=== PATIENT | male | born 1960 | race Caucasian/White ===

== ENCOUNTER 2019-01-12 20:23 | Emergency (ER) | payer MEDICAID ==
[~2019-01-12] VITALS: Ht 175.3 cm; Wt 90.7 kg
[2019-01-12 20:51] VITALS: BP 159/94
[2019-01-12 21:35] LABS: Basophils # (auto) 0 uL; Basophils % (auto) 0.2 % (0.0-2.0); Eosinophils # (auto) 0 uL; Hematocrit 52.1 % (41.0-53.0); Hemoglobin 17.6 g/dL (13.5-17.5); Lymphocytes # (auto) 1.5 uL; Lymphocytes % (auto) 11.6 % (10.0-50.0); Mean Corpuscular Hemoglobin 30.5 pg (28.0-32.0); Mean Corpuscular Hgb Conc. 33.8 g/dL (32.0-36.0); Mean Corpuscular Volume 90.3 fL (80.0-100.0); Monocytes # (auto) 0.6 uL; Monocytes % (auto) 4.3 % (0.0-12.0); Neutrophils # (auto) 10.8 uL; Neutrophils % (auto) 83.9 % (37.0-80.0); Nucleated Red Blood Cells % 0.3 %; Platelet Count (auto) 324 10^3/uL (140-450); Red Blood Cells 5.77 10^6/uL (4.5-5.90); Red Cell Distribution Width 14.3 % (11.8-14.3); White Blood Cell 12.9 10^3/uL (4.4-10.8)
[2019-01-12 21:51] LABS: Albumin 4.1 g/dL (3.4-5.0); Anion Gap 9 (5-15); Blood Urea Nitrogen 15 mg/dL (7-18); Calcium 9.2 mg/dL (8.5-10.1); Carbon Dioxide 25 mmol/L (21-32); Chloride 102 mmol/L (98-107); Glucose 140 mg/dL (74-106); Potassium 4.1 mmol/L (3.5-5.1); Sodium 136 mmol/L (136-145)
[2019-01-12 21:54] LABS: Alanine Aminotransferase 31 U/L (16-61); Aspartate Aminotransferase 14 U/L (15-37); BUN/Creatinine Ratio 11.5; GFR African American 73 mL/min; GFR Non-African American 60 mL/min
[2019-01-12 22:02] LABS: Alkaline Phosphatase 123 U/L (45-117); Bilirubin, Total 0.6 mg/dL (0.2-1.0); Total Protein 9.2 g/dL (6.4-8.2)
== END 2019-01-13 01:42 | disposition left against medical advice (07) ==
LOC: ER 20:25
DX: R10.10 Upper abdominal pain, unspecified (principal); Z53.21 Procedure and treatment not carried out due to patient leaving prior to being seen by health care provider
CPT/HCPCS: 36415; 80053; 84484; 85025; 93005

== ENCOUNTER 2020-01-01 23:22 | Inpatient (IN) | payer MEDICAID, OTHER ==
[~2020-01-01] VITALS: Ht 175.3 cm; Wt 90.9 kg
[2020-01-01] MEDS ORDERED: cloNIDine HCL 0.1 MG TAB PO ONE (23:45)
[2020-01-01 23:59] LABS: Basophils # (auto) 0 10 ^3/uL (0-0.2); Basophils % (auto) 0.1 % (0.0-2.0); Eosinophils # (auto) 0 10 ^3/uL (0-0.8); Hematocrit 50.6 % (41.0-53.0); Hemoglobin 17.1 g/dL (13.5-17.5); Lymphocytes # (auto) 1.5 10 ^3/uL (0.4-5.4); Lymphocytes % (auto) 12.9 % (10.0-50.0); Mean Corpuscular Hemoglobin 30.5 pg (28.0-32.0); Mean Corpuscular Hgb Conc. 33.8 g/dL (32.0-36.0); Mean Corpuscular Volume 90.1 fL (80.0-100.0); Monocytes # (auto) 0.7 10 ^3/uL (0-1.3); Monocytes % (auto) 6.1 % (0.0-12.0); Neutrophils # (auto) 9.5 10 ^3/uL (1.6-8.6); Neutrophils % (auto) 80.9 % (37.0-80.0); Nucleated Red Blood Cells % 0.6 %; Platelet Count (auto) 347 10^3/uL (140-450); Red Blood Cells 5.62 10^6/uL (4.5-5.90); Red Cell Distribution Width 14.2 % (11.8-14.3); White Blood Cell 11.7 10^3/uL (4.4-10.8)
[2020-01-02 00:11] LABS: INR 1.07 (0.9-1.15); Partial Thromboplastin Time 27.5 sec (23.64-32.05)
[2020-01-02 00:14] LABS: Alanine Aminotransferase 40 U/L (16-61); Anion Gap 8 (5-15); Aspartate Aminotransferase 19 U/L (15-37); BUN/Creatinine Ratio 13.3; Blood Urea Nitrogen 17 mg/dL (7-18); Calcium 9.4 mg/dL (8.5-10.1); Carbon Dioxide 26 mmol/L (21-32); Chloride 102 mmol/L (98-107); GFR African American 74 mL/min; GFR Non-African American 61 mL/min; Glucose 152 mg/dL (74-106); Potassium 4.5 mmol/L (3.5-5.1); Sodium 136 mmol/L (136-145)
[2020-01-02 00:25] LABS: Alkaline Phosphatase 121 U/L (45-117); Bilirubin, Total 0.5 mg/dL (0.2-1.0); Total Protein 9.1 g/dL (6.4-8.2)
[2020-01-02] MEDS ORDERED: ONDANSETRON HCL 4 MG/2 ML VIAL IV ONE (00:30)
[2020-01-02] MEDS ORDERED: SODIUM CHLORIDE 0.9% 1,000 ML IV ONE (00:30)
[2020-01-02] MEDS ORDERED: chlorproMAZINE HCL 25 MG TAB PO ONE (01:30)
[2020-01-02 02:24] LABS: Urine Bacteria FEW /hpf (None Seen); Urine Blood 1+ /uL (Negative); Urine Hyaline Cast FEW /lpf (0 - 2); Urine Mucus FEW (None Seen); Urine Specific Gravity 1.026 (1.001-1.035); Urine WBC 6 /hpf (0 - 3)
[2020-01-02 02:53] LABS: Cholesterol 208 mg/dL (< 200)
[2020-01-02 02:55] LABS: HDL Cholesterol 49 mg/dL (40-59); LDL Cholesterol 129 mg/dL (< 100); Lactic Acid w/Reflex 2.4 mmol/L (0.4-2.0); Triglycerides 157 mg/dL (< 150)
[2020-01-02] MEDS ORDERED: AZITHROMYCIN 500MG/ 250ML 250 ML IV ONE (03:00)
[2020-01-02] MEDS ORDERED: SULFAMETH-TRIMETH 80/16MG-ML 10 ML in D5W 5% 250 ML IV ONE (03:30)
[2020-01-02] MEDS ORDERED: cefTRIAXone 1GM/50ML D5W 50 ML IV ONE (03:30)
[2020-01-02] MEDS ORDERED: SODIUM CHLORIDE 0.9% 1,000 ML IV SCH ×2 (03:39→17:15)
[2020-01-02] MEDS ORDERED: ACETAMINOPHEN 500 MG TAB PO PRN (03:45)
[2020-01-02] MEDS ORDERED: DEXTROSE (50%) 50ML SYRG IV PRN (03:45)
[2020-01-02] MEDS ORDERED: MORPHINE SULFATE 4 MG/ML SYR/VIAL IV PRN (03:45)
[2020-01-02] MEDS ORDERED: HYDROcodone-ACET 5/325MG TAB PO PRN (03:45)
[2020-01-02] MEDS ORDERED: ONDANSETRON HCL 4 MG/2 ML VIAL IV PRN (03:45)
[2020-01-02] MEDS ORDERED: DOCUSATE SOD 100 MG CAP PO PRN (03:45)
[2020-01-02] MEDS: InsuLIN REG 1unit/0.01ml Soln (100units/ml) SC SCH ×5 (04:00→20:59)
[2020-01-02] MEDS: ACCU-CHEK COMFORT CURVE STRIP VI SCH ×5 (04:00→20:00)
[2020-01-02] MEDS ORDERED: ALBUTEROL SULF HFA 90MCG INH 200DOSE IN SCH ×2 (06:00)
--- NOTE | 2020-01-02 06:00 | NUR ---
Telemetry admit from ER RAIMUNDONIDIA admitted to Telemetry unit after SBAR received. Patient oriented to ARON PRIEST, RN primary RN, unit, room, bed, and unit policies regarding patient care and visiting hours. ]. weighed by bedscale and encouraged to call if they need something. All questions and concerns addressed, patient verbalized understanding. Note:
[2020-01-02 06:01] VITALS: BP 116/75
[2020-01-02] MEDS ORDERED: DARU1TAB3 PO (07:16)
[2020-01-02] MEDS ORDERED: ASPI-231 PO (07:16)
--- NOTE | 2020-01-02 07:41 | NUR ---
PAGED GROUND HELPER STREET RAILWAY HOSPITALIST.
--- NOTE | 2020-01-02 08:22 | NUR ---
ROUNDING: PATIENT RESTING IN BED. LETHARGIC. PATIENT DENIES TAKING ANY ILLEGAL SUBSTANCE. PATIENTS LEFT SIDE OF FACE DROOPY AND STATES HIS FACE FEELS NUMB. LEFT ARM DRIFTING WHEN BOTH ARMS ARE EXTENDED. CYCLE DIRECTOR STRENGTH EQUAL BILATERALLY ALONG WITH DELAYED SPEECH.
--- NOTE | 2020-01-02 08:27 | NUR ---
PAGED ANIMAL ATTENDANT HOSPITALIST.
--- NOTE | 2020-01-02 08:42 | NUR ---
SPOKE TO Darryl FELIX AND INFORMED OF PATIENT STATUS INCLUDING LEFT SIDED FACIAL DROOPING AND LEFT ARM DRIFTING. INFORMED MACHINE PAN GREASER STRENGTHS ARE EQUAL. STATED HE IS NOT THE ASSIGNED M.D. AND WHOEVER IS ASSIGNED TO THIS PATIENT WILL EVALUATE.
--- NOTE | 2020-01-02 09:25 | NUR ---
REGARDING CT: TRANSPORTED PATIENT TO RADIOLOGY FOR STAT HEAD CT WITH WILMER STAPLES, EVS, AND SECURITY. PATIENTS VITALS 123/67, HR 67, ON 2L NC WITH OXYGEN SATURATIONS AT 94%. RR 18.
--- NOTE | 2020-01-02 09:51 | NUR ---
REGARDING CT OF HEAD: SPOKE TO Darryl TEJADA. INFORMED THIS RN THAT PATIENT HAS A ACUTE INFARCT IN L CEREBELLUM.
[2020-01-02] MEDS ORDERED: ZINC SULFATE 220mg CAP or TAB PO SCH (10:00)
[2020-01-02] MEDS ORDERED: ASCORBIC ACID 1,000 MG TAB PO SCH (10:00)
[2020-01-02] MEDS ORDERED: CHOLECALCIFEROL (VITD3) 1,000UNIT=25mCg TAB PO SCH (10:00)
[2020-01-02] MEDS ORDERED: ENOXAPARIN SOD 40 MG/0.4 ML SYRINGE SC SCH (10:00)
[2020-01-02] MEDS ORDERED: DOXYCYCLINE 100 MG TAB/CAP PO SCH (10:00)
[2020-01-02] MEDS ORDERED: DOXYCYCLINE 100MG/250ML 250 ML IV SCH (10:00)
--- NOTE | 2020-01-02 10:00 | NUR ---
ROUNDING: PATIENT A&OX4. BLOOD PRESSURE 134/63 AND HEART RATE 74 BPM. PATIENT ON 2L NC. CONTINUES TO PRESENT WITH LEFT SIDED DROOPING OF THE FACE AND LEFT ARM DRIFTING.
--- NOTE | 2020-01-02 10:12 | NUR ---
ANAYA PASCUAL RE: HEAD CT RESULTS. AWAITING CALL BACK
--- NOTE | 2020-01-02 10:18 | NUR ---
IV insertion IV access obtained, via clean sterile technique by inserting 22 gauge catheter at RAC after 1 attempt(s). IV secured properly. No trauma to site. Patient tolerated well. NOTE:
--- NOTE | 2020-01-02 10:31 | NUR ---
SPOKE TO Darryl PASCUAL REGARDING FINDINGS OF HEAD CT AND PATIENT CURRENT SYMPTOMS. RECEIVED ORDERS FOR STAT NEUROLOGY CONSULT. STATED SHE WILL TALK TO Darryl GOMEZ AND CALL THIS RN BACK.
--- NOTE | 2020-01-02 10:33 | NUR ---
CONSULT NOTIFICATION: CALLED IN STAT NEUROLOGY CONSULT TO [facility]HE[facility] IN PBX FOR Darryl GOMEZ.
--- NOTE | 2020-01-02 10:48 | NUR ---
Darryl PASCUAL AT BEDSIDE. INFORMED OF PATIENT STATUS. RECEIVED ORDER TO HOLD ALL MEDICATION AND PLACE PATIENT ON NPO STATUS.
[2020-01-02 12:45] VITALS: BP 148/79
--- NOTE | 2020-01-02 13:55 | NUR ---
Transferred to [facility] RAIMUNDONIDIA transferred to [facility] via hospital bed on traffic monitor specialist (returned to unit), and portable 02. Patient connected to unit monitoring and oxygen on Oxymizer 6 LPM, and weighed by bedscale. Patient oriented to SLADE SIDHU RN primary RN, unit, room, bed, and unit policies regarding patient care and visiting hours. All questions and concerns addressed, patient verbalized understanding. Patient able to talk, follow direction, able to move all extremities equal power, on IV both AC.
--- NOTE | 2020-01-02 14:00 | NUR ---
PATIENT TRANSFERRED TO ROOM 264. REPORT GIVEN TO RN NADIR. ALL QUESTIONS ANSWERED.
--- NOTE | 2020-01-02 14:06 | NUR ---
SPOKE TO Darryl PASCUAL. INFORMED OF PATIENTS URINE OUTPUT. RECEIVED ORDERS FOR A SUE. WILL ENDORSE TO [facility] NURSE.
--- NOTE | 2020-01-02 14:10 | NUR ---
[place] and spoke to Dr. Goldberg, received order for Lab stat, ABG stat, D/C IV fluid, Lasix 40 mg IV once and retain Roa's catheter. Informed patient about the plan of care. Patient made aware okay for Roa's catheter insertion.
[2020-01-02] MEDS ORDERED: FUROSEMIDE 40 MG/4 ML VIAL IV ONE ×2 (14:15)
[2020-01-02] MEDS ORDERED: FUROSEMIDE 40 MG/4 ML VIAL ONE (14:16)
--- NOTE | 2020-01-02 14:20 | NUR ---
Alegre catheter insertion Patient assessed and determined to be in need of alegre catheter. Order obtained from Sharon Goldberg MD. Patient educated on catheter and reason for insertion. All questions answered. Alegre catheter 16 guage Mauritanian inserted with clean sterile technique. Patient tolerated well. Got total of 600ml of urine. Sent urine sample to Lab
--- NOTE | 2020-01-02 14:32 | NUR ---
Echocardiogram at the bedside.
[2020-01-02] MEDS ORDERED: ROSU20TA14 PO (14:42)
[2020-01-02] MEDS ORDERED: CHOL1TAB16 PO (14:47)
--- NOTE | 2020-01-02 14:53 | NUR ---
Dr. Goldberg at the bedside, seen and examined patient at this time, Blood culture already collected from yesterday. Will cancel today's order. Informed MD that after retained Roa's catheter got urine 600 ml out. SBP 160 mmHg, no new order at this time, will continue to monitor and care.
--- NOTE | 2020-01-02 14:55 | NUR ---
RT at the bedside for ABG.
[2020-01-02 15:09] LABS: Basophils # (auto) 0 10 ^3/uL (0-0.2); Basophils % (auto) 0.2 % (0.0-2.0); Eosinophils # (auto) 0 10 ^3/uL (0-0.8); Hematocrit 48.7 % (41.0-53.0); Hemoglobin 16.2 g/dL (13.5-17.5); Lymphocytes # (auto) 0.9 10 ^3/uL (0.4-5.4); Mean Corpuscular Hemoglobin 30.5 pg (28.0-32.0); Mean Corpuscular Hgb Conc. 33.4 g/dL (32.0-36.0); Mean Corpuscular Volume 91.3 fL (80.0-100.0); Monocytes # (auto) 0.9 10 ^3/uL (0-1.3); Monocytes % (auto) 9.2 % (0.0-12.0); Neutrophils # (auto) 8.2 10 ^3/uL (1.6-8.6); Neutrophils % (auto) 81.6 % (37.0-80.0); Nucleated Red Blood Cells % 0.1 %; Platelet Count (auto) 262 10^3/uL (140-450); Red Blood Cells 5.33 10^6/uL (4.5-5.90); Red Cell Distribution Width 14.3 % (11.8-14.3)
--- NOTE | 2020-01-02 15:09 | NUR ---
Dr. Abad at the bedside for new consultation. Seen and examined patient at this time, plan of care discussed with patient, received new orders. Will add D Dimer and ultrasound both legs for R/O DVT.
--- NOTE | 2020-01-02 15:10 | NUR ---
ABG drawn as ordered, results to follow. Dr. Abad at bedside, new orders received.
[2020-01-02] MEDS ORDERED: ALBUTEROL SULF 2.5 MG/0.5ML(0.5%) NEB SOLN NEB PRN (15:15)
--- NOTE | 2020-01-02 15:17 | NUR ---
Ultrasound at the bedside. Dr. Abad stated that won't need D Dimer at this time, will cancel order now. Lab made aware.
[2020-01-02 15:22] LABS: Albumin 3.7 g/dL (3.4-5.0); Calcium 8.4 mg/dL (8.5-10.1); Potassium 4.5 mmol/L (3.5-5.1)
[2020-01-02 15:26] LABS: BUN/Creatinine Ratio 13.6; Bilirubin, Total 0.7 mg/dL (0.2-1.0); Total Protein 8.3 g/dL (6.4-8.2)
[2020-01-02 16:00] VITALS: BP 149/88
--- NOTE | 2020-01-02 16:12 | NUR ---
NT suctioned for large thick green/yellow secretions. Pt tolerated well, improved aeration and breath sounds post-suction. Placed pt back on oxymizer 5lpm, SPO2 95%. Will continue to monitor.
--- NOTE | 2020-01-02 16:30 | NUR ---
Partial linen changed, elevated HOB, informed patient that need to sit up with high becerra position for prevention of aspiration. Oral suction within reach. Mouth care provided as well.
[2020-01-02] MEDS ORDERED: PIPERACILLIN-TAZOB 3.375GM 100 ML IV ONE (17:15)
--- NOTE | 2020-01-02 17:16 | NUR ---
Dr. Mcfarland at the bedside, seen and examined patient at this time, received new orders, will carry out.
--- NOTE | 2020-01-02 17:34 | NUR ---
IV insertion IV access obtained, via clean sterile technique by inserting 20 gauge catheter at left forearm after 1 attempt(s). IV secured properly. No trauma to site. Patient tolerated procedure well.
[2020-01-02] MEDS ORDERED: IOHEXOL 350 MG/ML 100ML IJ ONE (17:41)
--- NOTE | 2020-01-02 18:15 | NUR ---
Patient came back from CT, mouth care provided and deep suction provided, got secretion with green and yellow large amount. Patient stated that feeling better after suction.
--- NOTE | 2020-01-02 18:40 | NUR ---
Received a call from Dr. Goldberg, received order for transfer to higher level of care for cerebellum stroke/decompression. Received a call from [facility] (NASH) will fax over to [place] at [phone].
--- NOTE | 2020-01-02 18:50 | NUR ---
Faxed H&P, Lab, CT, CXR, Progress note, consult to [place] trimming caser at [phone].
--- NOTE | 2020-01-02 19:00 | NUR ---
Opening Shift Note Assumed care of patient, awake and alert. No S/S of pain. Patient noted to be mildly SOB but continue with oxymizer in place for supplemental oxygen. Patient currently sating at 96%. Patient continues to appear very weak and fatigued. Instructed on POC and to call for assist PRN, will continue to monitor for changes Q1hr and PRN.
--- NOTE | 2020-01-02 19:15 | NUR ---
Received a call from Radiologist regarding CT result, paged Dr. Mcfarland.
--- NOTE | 2020-01-02 19:25 | NUR ---
Dr. Mcfarland at the bedside, seen the CT angio result, recommendation to transfer stat.
--- NOTE | 2020-01-02 19:37 | NUR ---
Called and talked to health unit supervisor to get a contact to social service ([facility]) regarding the contact number of business case analyst from [place].
--- NOTE | 2020-01-02 19:42 | NUR ---
Called [phone] and spoke to account development representative, left the message for mental health case manager (rubén) to call back to [phone] ext [phone] and mention that need transfer stat as soon as possible for the intervention for stroke.
--- NOTE | 2020-01-02 19:47 | NUR ---
Received a call from superintendent warehouse, still unable to contact our social service or skilled nursing case manager. casting supervisor will try to call [phone] again.
[2020-01-02 19:54] VITALS: BP 149/88
--- NOTE | 2020-01-02 19:55 | NUR ---
Re: Donny Called , spoke with Reji in regards of need to transfer patient for higher level of care due to acute stroke. Stated [place] is director of casework services and is unavailable at this time. Message sent to contact bedside nurse for follow up.
--- NOTE | 2020-01-02 20:00 | NUR ---
CALLED [facility] AND SPOKE WITH ERIKA, NOTIFIED HER ABOUT THE NEED TO TRANSFER PATIENT TO HIGHER LEVEL OF CARE REGARDING CEREBELLAR INFARCT. ERIKA SAID SHE WILL PRESENT TO MD THE PAPERS THAT WERE FAXED TO HER, SHE WILL CALL US LATER FOR UPDATE.
--- NOTE | 2020-01-02 20:45 | NUR ---
Donny: RN received call from [facility] Marketing Developer "Maine". Patient report given to [place] and [place] stated [facility] Neurologist wants to speak with Dr. Mcfarland. Dr. Mcfarland was notified and Dr. Mcfarland to give [facility] a call RENNY to speak with [place] Neurologist to give report. Per [place], Patient is to be transferred to [facility]. RN also received transfer check off list from [place] via fax. RN to prepare transfer paperwork and await call back from [place] regarding transfer after [facility] Speaks with Dr. Mcfarland. Addendum: 01/02/20 at 2140 by NIDIA GONZALES RN RN [place] # [phone]
[2020-01-02] MEDS ORDERED: cefTRIAXone 1GM/50ML D5W 50 ML IV SCH (21:00)
--- NOTE | 2020-01-02 21:18 | NUR ---
Per patient: Per patient, he wanted RN to call his brother "Bryon" and inform him of his possible transfer to [facility]. RN call patient's brother and verified password in patient's chart and updated him on patient's possible transfer to [facility].
--- NOTE | 2020-01-02 21:30 | NUR ---
RN called [facility] to follow up on patient transfer. RN spoke with [place] Hand Inspector "Maine" who stated Dr. Mcfarland has called them and she is currently waiting for further direction and will give me a call back RENNY regarding patient's transfer. Addendum: 01/02/20 at 2310 by NIDIA GONZALES RN RN Per [place], Dr. Mcfarland has spoken to the [facility] doctor and patient case was discussed between the doctors.
[2020-01-02 22:00] VITALS: BP 144/91
[2020-01-02] MEDS ORDERED: ACETYLCYSTEINE 10 %(100MG/ML) SOL 4ML NEB SCH (22:00)
--- NOTE | 2020-01-02 22:29 | NUR ---
RN called [facility] to follow up on patient transfer. RN spoke with [facility] Aviation Medicine Specialist "Maine" who states she is still waiting for information regarding patient's acceptance.
--- NOTE | 2020-01-02 22:47 | NUR ---
Respiratory note: PT SEEN FOR SCHEDULED MED NEB TX AT 2247. BEFORE I STARTED HHN TX I PERFORMED NT SUCTION x2. SUCTIONED LARGE THICK COPIOUS YELLOW SECRETIONS. PT TOLERATED SUCTION FINE.
--- NOTE | 2020-01-02 23:08 | NUR ---
Dr. Mcfarland paged: RN paged Dr. Mcfarland to inform him patient is still waiting for transfer to [place].
--- NOTE | 2020-01-02 23:16 | NUR ---
Donny: RN received call from [place] energy conservation representative "Cara". Patient transportation has been set up. Patient will be going to [facility] in room 206. Accepting doctor is Dr. Modi. Unit number for report is [phone]. Per Cara, patient room is ready now and transportation should arrive within the hour.
--- NOTE | 2020-01-02 23:40 | NUR ---
RN spoke with and gave report to Donny Higgins. 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
[2020-01-03] VITALS: BP 142/90
[2020-01-03] MEDS ORDERED: PIPERACILLIN-TAZOB 3.375GM 100 ML IV SCH
[2020-01-03] MEDS: InsuLIN REG 1unit/0.01ml Soln (100units/ml) SC SCH
[2020-01-03] MEDS: ACCU-CHEK COMFORT CURVE STRIP VI SCH
--- NOTE | 2020-01-03 01:00 | NUR ---
[facility] at patient bedside for patient transport. Report given to [facility] RN. [facility] being transferred [facility]. Patient in no current s/s of discomfort or distress.
--- NOTE | 2020-01-03 01:09 | NUR ---
Patient off unit and being transferred by [facility] with [facility] RN.
--- NOTE | 2020-01-03 08:17 | NUR ---
motion study engineer Received a page from Dr Goldberg last night that patient needs transfer to higher level of care. Per Dr Yusuf coleman to send patient to [facility]. I spoke with Shabbir GUILLEN and transfer packet was sent to [facility]. Patient was transferred to [facility] by DUNG. Addendum: 01/03/20 at 0819 by Gisella CAO Amended: Links added.
[2020-01-03] MEDS ORDERED: FUROSEMIDE 100 MG/10ML VIAL IV SCH (10:00)
== END 2020-01-03 01:09 | disposition short-term general hospital (02) | DRG 64 ==
LOC: EDBD 23:22 → ER 23:25 → OVERFLOW 23:26 → EAST 01-02 06:02 → ICU CENTRL 01-02 13:57 → DOU IN ICU 01-02 14:17
PROVIDERS: ADMIT Hospitalist; ATTEND Internal Medicine Nephrology
DX: I63.9 Cerebral infarction, unspecified (principal); J96.01 Acute respiratory failure with hypoxia; J98.11 Atelectasis; G93.49 Other encephalopathy; E11.9 Type 2 diabetes mellitus without complications; F17.200 Nicotine dependence, unspecified, uncomplicated; I25.10 Atherosclerotic heart disease of native coronary artery without angina pectoris; I65.02 Occlusion and stenosis of left vertebral artery; J44.9 Chronic obstructive pulmonary disease, unspecified; W18.39XA Other fall on same level, initial encounter; Y93.89 Activity, other specified; Y92.098 Other place in other non-institutional residence as the place of occurrence of the external cause; Y99.8 Other external cause status; Z79.82 Long term (current) use of aspirin; Z79.899 Other long term (current) drug therapy; Z80.0 Family history of malignant neoplasm of digestive organs; Z80.1 Family history of malignant neoplasm of trachea, bronchus and lung; Z80.3 Family history of malignant neoplasm of breast; Z80.42 Family history of malignant neoplasm of prostate; Z80.8 Family history of malignant neoplasm of other organs or systems; Z81.8 Family history of other mental and behavioral disorders; Z82.0 Family history of epilepsy and other diseases of the nervous system; Z82.3 Family history of stroke; Z82.49 Family history of ischemic heart disease and other diseases of the circulatory system; Z82.5 Family history of asthma and other chronic lower respiratory diseases; Z82.62 Family history of osteoporosis; Z83.3 Family history of diabetes mellitus; Z95.5 Presence of coronary angioplasty implant and graft; Z03.818 Encounter for observation for suspected exposure to other biological agents ruled out; Z79.84 Long term (current) use of oral hypoglycemic drugs
CPT/HCPCS: 31720; 36415; 36600; 70450; 70460; 70498; 71045; 71250; 80053; 80061; 81001; 82728; 82805; 82962; 83605; 83735; 83880; 84484; 85025; 85379; 85610; 85730; 86360; 87040; 87070; 87081; 87086; 87205; 87804; 87880; 93005; 93306; 93970; 94640; 96361; 96365; 96368; 96375; G0378; J0696; J1815; J2405; J2543; J3490; J7060; Q0161